=== PATIENT | female | born 1965 | race Caucasian/White ===

== ENCOUNTER 2020-03-26 02:32 | Emergency (ER) | payer BC, MEDICARE ==
[2020-03-26 03:24] LABS: HEMOGLOBIN 13.5 gm/dl (12.3-15.3); RED BLOOD COUNT 4.48 M/UL (4.00-5.10); WHITE BLOOD COUNT 12.8 K/UL (4.5-11.0)
[2020-03-26 03:44] LABS: BUN/CREATININE RATIO 11 (0-10)
[2020-03-26] MEDS ORDERED: OMNICEF 300 MG300 MG PO (06:22)
[2020-03-26] MEDS ORDERED: K-DUR TAB 20 M20 MEQ PO (06:22)
[2020-03-26] MEDS ORDERED: ZITHROMAX250 MG PO (06:22)
== END 2020-03-26 07:26 | disposition home or self-care (01) ==
LOC: ER1 02:32
PROVIDERS: Emergency Medicine
DX: J18.9 Pneumonia, unspecified organism (principal); E87.6 Hypokalemia; R91.8 Other nonspecific abnormal finding of lung field; I10 Essential (primary) hypertension; F17.210 Nicotine dependence, cigarettes, uncomplicated; Z88.0 Allergy status to penicillin; Z20.822 Contact with and (suspected) exposure to COVID-19
CPT/HCPCS: 0240U; 36415; 71045; 80053; 82550; 82553; 83605; 83874; 84484; 85025; 85379; 85610; 85652; 85730; 86140; 87040; 93005; 96374; 96375; 99284; J0456; J0696; J1100; J1885; Q9967

== ENCOUNTER → 2021-04-23 | Outpatient (CLI) | payer BC, MEDICARE ==
[~2021-04-23] MED LIST: K-DUR TAB 20 M20 MEQ PO; OMNICEF 300 MG300 MG PO; ZITHROMAX250 MG PO
== END ==
LOC: MAMO 01-23 08:00
DX: Z12.31 Encounter for screening mammogram for malignant neoplasm of breast (principal)
CPT/HCPCS: 77063; 77067